=== PATIENT | male | born 1950 | race African-American/Black ===

== ENCOUNTER → 2016-08-25 | Day surgery (SDC) | payer MEDICARE ==
[~2016-08-25] MED LIST: ARIP10TA13 PO; DIPH25CA58 PO; FENTANYL PF 100 MCG/2 ML VIAL. IV PRN; GABA-586 PO; GLIP10TA13 PO; HYDROMORPHONE 2 MG/ML VIAL. IV PRN; INSU100C4 SQ; INSU100V8 SQ; IV RINGERS,LACTATED 1000ML 1,000 ML IV SCH; LIDOCAINE 1% 1 ML SYRINGE. ID PRN; LISI40TA PO; METF500T4 PO; MORPHINE SULFATE 2 MG/ML DISP.SYRIN. IV PRN; ONDANSETRON PF 4 MG/2 ML VIAL. IV PRN; PRED50TA PO; PROCHLORPERAZINE 10 MG/2 ML VIAL. IV PRN; PROPOFOL 40 ML IV ONE; TRAZ50TA15 PO
--- NOTE | 2016-08-25 10:22 | PDOC1 ---
HISTORY & PHYSICAL H&P Kiko Dawson [id number] 1950 08/08/2016 10:30 AM 06/29 [facility] OUR PATIENTS COME FIRST [address] [place], [place] [id number] Ph. [phone] Patient: Kiko Dawson Date of : 1950 Date: 08/08/2016 10:30 AM Historian: self Visit Type: Consult This 66 year old male presents for Screening colonoscopy and Constipation. History of Present Illness: 1. Screening colonoscopy No prior screening. Denies risk factors. Associated symptoms include constipation. Pertinent negatives include abdominal pain, change in bowel habits, change in stool caliber, decreased appetite, diarrhea, melena, nausea, rectal bleeding, vomiting, weight gain and weight loss. Additional information : No family history of colon cancer, No family history of Crohn's/colitis, No NSAID/ASA use and Never had colonoscopy. 2. Constipation Severity level mild. The patient describes it as difficulty passing, hard and small stools. Denies aggravating symptoms. Denies relieving factors. Pertinent negatives include abdominal pain, black tarry stools, bleeding with bowel movement, bloating, change in appetite, nausea, vomiting and weight loss. INTAKE COMMENTS: Intake Comments: Nurses Notes: Pt is here today for a Screening Colonoscopy. Pt denies any issues at this time Pt is 66 yrs of age has never had a colonoscopy before. PROBLEM LIST: Problem Description Onset Date Hyperlipidemia 12/30/2011 Benign essential hypertension 12/30/2011 Obesity 03/08/2009 PAST MEDICAL/SURGICAL HISTORY (Detailed) Disease/disorder Onset Date Management Date Comments Arthrocentesis of the right knee joint Arthrocentesis of the left knee joint Arthrocentesis of the right knee joint Arthrocentesis of the left knee joint Arthrocentesis of the right knee joint Arthrocentesis of the left knee joint Arthrocentesis of the right knee joint Arthrocentesis of the left knee joint Arthrocentesis of the left knee joint Arthrocentesis of the left knee joint Arthrocentesis of the left knee joint Arthrocentesis of the right knee joint Arthrocentesis of the right knee joint Arthrocentesis of the left knee joint Bipolar Diabetes GERD Hyperlipidemia Hypertension Medications (Active): Started Medication Directions Instruction Stopped 07/01/2016 Diflucan 100 mg tablet take 1 tablet by oral route every day 07/01/2016 doxycycline monohydrate 100 mg capsule take 1 capsule by oral route 2 times every day 07/01/2016 gabapentin 300 mg capsule take 1 capsule by oral route 3 times every day 07/30/2016 Humalog Mix 75-25 KwikPen 100 unit/mL subcutaneous insulin pen 35 u bid 11/19/2011 Insulin Syringe Ultrafine 1/2 mL 29 x 1/2" USE WITH INSULIN QID AND NEEDED 07/30/2016 Levemir FlexTouch 100 unit/mL (3 mL) subcutaneous insulin pen inject 50 units SQ daily with dinner 07/02/2016 losartan 50 mg tablet take 1 tablet by oral route every day 07/02/2016 lovastatin 20 mg tablet take 2 tablets by mouth every night at bedtime 07/02/2016 loxapine succinate 5 mg capsule take 1 capsule by oral route 2 times every day 07/02/2016 meclizine 25 mg tablet take 1 tablet by oral route every day as needed 07/02/2016 metformin 500 mg tablet take 2 tablet by oral route 2 times every day with morning and evening meals 07/02/2016 nystatin 100,000 unit/gram topical cream apply by topical route 2 times every day to the affected area(s) 07/02/2016 omeprazole 40 mg capsule,delayed release take 1 capsule by oral route every day before a meal 07/02/2016 propranolol 10 mg tablet take 1 tablet by oral route 2 times every day 07/02/2016 trazodone 150 mg tablet take 1 to 1.5 tablets at HS PRN for insomnia Allergies: Ingredient Reaction Medication Name Comment CODEINE LISINOPRIL Angioedema PRINIVIL HALOPERIDOL Haldol HALOPERIDOL LACTATE Haldol REVIEW OF SYSTEMS System Neg/Pos Details Constitutional Negative Chills, fever, malaise, weight gain and weight loss. ENMT Negative Sore throat. Eyes Negative Double vision. Respiratory Negative Dyspnea and wheezing. Cardio Negative Chest pain and irregular heartbeat/palpitations. GI Positive Constipation, See HPI. GI Negative Abdominal pain, black tarry stools, bleeding with bowel movement, bloating, change in appetite, change in bowel habits, change in stool caliber, decreased appetite, diarrhea, melena, nausea, see HPI, rectal bleeding and vomiting. Negative Dysuria and hematuria. Endocrine Negative Cold intolerance and heat intolerance. Psych Negative Anxiety. Integumentary Negative Hives and rash. MS Negative Joint pain. Chad/Lymph Negative Easy bleeding and easy bruising. Allergic/Immuno Negative Food allergies. VITAL SIGNS Time BP mm/Hg Pulse /min Resp /min Temp F Ht ft Ht in Ht cm Wt lb Wt kg BMI kg/ m2 BSA m2 O2 Sat% 10:40 AM 130/78 124 16 98.0 5.0 7.00 170.18 250.40 113.580 39.22 95 Time Measured by 10:40 AM Kourtney Madsen PHYSICAL EXAM: Exam Findings Details Constitutional Normal Well developed. Eyes Normal Conjunctiva - Right: Normal, Left: Normal. Sclera - Right: Normal, Left: Normal. Nasopharynx Normal Lips/teeth/gums - Normal. Neck Exam Normal Inspection - Normal. Thyroid gland - Normal. Respiratory Normal Inspection - Normal. Auscultation - Normal. Cardiovascular Normal Regular rate and rhythm. No murmurs, gallops, or rubs. Vascular Normal Pulses - Carotids: Normal, Femoral: Normal, Dorsalis pedis: Normal. Abdomen Normal Inspection - Normal. Anterior palpation - No guarding. No abdominal tenderness. No hepatic enlargement. No splenic enlargement. No hernia. No ascites. Skin Normal Inspection - Normal. Extremity Normal No edema. Psychiatric * Oriented to time, place, person and situation. Psychiatric Normal Appropriate mood and effect. Assessment/Plan # Detail Type Description 1. Assessment Slow transit constipation (K59.01). Patient Plan Await colonoscopy Provider Plan High fiber diet, fiber supplement and stool softener if needed. Avoid constipation and straining at defecation. 2. Assessment Encounter for screening colonoscopy (Z12.11). Patient Plan schedule colonoscopy at Plan Orders Further diagnostic evaluations ordered today include(s) Colonoscopy to be performed today. He is to schedule a follow-up visit with Guido Ibanez MD upon completion of work-up Electronically signed by: Guido Ibanez MD 08/08/2016 12:08 PM Document generated by: Guido Ibanez 08/08/2016 12:08 PM Kumar Marquez MD, Family Practice; Jt Chahal MD Internal Medicine; Lenka Ragsdale MD, Internal Medicine; Isabella Ibanez MD Internal Medicine; Guido Ibanez MD, Gastroenterology; Srinivasa Maya MD, Rheumatology, S. Bandar Tolentino, Physical Medicine/[facility] CenterFelipe DURBIN ------ 08/25/16 Patient seen and examined. No change in H&P GUIDO IBANEZ MD Aug 25, 2016 10:22
--- NOTE | 2016-08-25 11:25 | PDOC4 ---
GI OP Report - Dr. Enriquez Date/Time DATE: 08/25/16 TIME: 11:24 Attending Physician Guido Enriquez MD Referring Physician Indications Screening for colorectal malignant neoplasm Pre-Op See the Anesthesia note for documentation of the administered medications Procedures Colonoscopy Findings - The entire examined colon is normal on direct and retroflexion views. - No specimens collected. Plan - Discharge patient to home. - Patient has a contact number available for emergencies. The signs and symptoms of potential delayed complications were discussed with the patient. Return to normal activities tomorrow. Written discharge instructions were provided to the patient. - Resume regular diet. - Continue present medications. - Repeat colonoscopy in 10 years for surveillance. - Return to my office as needed. GUIDO ENRIQUEZ MD Aug 25, 2016 11:25
[2016-08-25 11:39] VITALS: BP 133/82
== END | disposition home or self-care (01) ==
LOC: ENDOS 09:40
PROVIDERS: ATTEND Internal Medicine Gastroenterology
DX: K59.00 Constipation, unspecified (principal); E78.00 Pure hypercholesterolemia, unspecified; H40.9 Unspecified glaucoma; I10 Essential (primary) hypertension; M19.90 Unspecified osteoarthritis, unspecified site; F41.9 Anxiety disorder, unspecified; Z72.89 Other problems related to lifestyle
CPT/HCPCS: 82947; G0121; J2704

== ENCOUNTER → 2018-01-28 | Outpatient (CLI) | payer BC, MEDICARE | END | disposition home or self-care (01) | LOC: US 08:17 | DX: K80.20 Calculus of gallbladder without cholecystitis without obstruction (principal); I10 Essential (primary) hypertension; E11.9 Type 2 diabetes mellitus without complications; E78.5 Hyperlipidemia, unspecified | CPT/HCPCS: 76700 ==

== ENCOUNTER 2019-07-06 14:55 | Emergency (ER) | payer BC, OTHER ==
[~2019-07-06 14:55] MED LIST changes: -ARIP10TA13 PO; +ARIP10TA9 PO; -FENTANYL PF 100 MCG/2 ML VIAL. IV PRN; -GABA-586 PO; +GABA300C18 PO; -HYDROMORPHONE 2 MG/ML VIAL. IV PRN; -IV RINGERS,LACTATED 1000ML 1,000 ML IV SCH; -LIDOCAINE 1% 1 ML SYRINGE. ID PRN; +LISI-130 PO; -LISI40TA PO; +METF500T16 PO; -METF500T4 PO; -MORPHINE SULFATE 2 MG/ML DISP.SYRIN. IV PRN; -ONDANSETRON PF 4 MG/2 ML VIAL. IV PRN; -PROCHLORPERAZINE 10 MG/2 ML VIAL. IV PRN; -PROPOFOL 40 ML IV ONE; +TRAZ-118 PO; -TRAZ50TA15 PO
--- NOTE | 2019-07-06 16:11 | PHYS DOC ---
Past Medical History Past Medical History: Depression, Diabetes-Type II, High Cholesterol, Hypertension, Other Additional Past Medical Histor: NEUROPATHY (KAYLEY BORGES APRN) Past Surgical History: Other Additional Past Surgical Histo: right hand (KAYLEY BORGES APRN) Alcohol Use: Occasionally Drug Use: None (KAYLEY BORGES APRN) Adult General Chief Complaint Chief Complaint: DIARRHEA HPI HPI Patient is a 68 year old male with history of diabetes type 2, hypertension, high cholesterol, who presents to the ED today complaining of diarrhea intermittently for a week. Patient reports symptoms have improved this morning but he had an episode this afternoon and decided to come to be checked out. Denies any bloody stools. Denies any abdominal pain, nausea vomiting. (KAYLEY BORGES APRN) Review of Systems Review of Systems Constitutional: Denies fever or chills [] Eyes: Denies change in visual acuity, redness, or eye pain [] HENT: Denies nasal congestion or sore throat [] Respiratory: Denies cough or shortness of breath [] Cardiovascular: No additional information not addressed in HPI [] GI: Reports diarrhea, denies any abdominal pain, nausea vomiting : Denies dysuria or hematuria [] Musculoskeletal: Denies back pain or joint pain [] Integument: Denies rash or skin lesions [] Neurologic: Denies headache, focal weakness or sensory changes [] All other systems were reviewed and found to be within normal limits, except as documented in this note. (KAYLEY BORGES APRN) Current Medications Current Medications Current Medications Medications (Trade) Dose Ordered Sig/Minda Start Time Stop Time Status Last Admin Dose Admin Ceftriaxone Sodium (Rocephin) 1 gm 1X ONCE 07/06/19 17:45 07/06/19 17:46 DC 07/06/19 18:13 1 GM Dicyclomine HCl (Bentyl) 20 mg 1X ONCE 07/06/19 16:15 07/06/19 16:16 DC 07/06/19 16:52 20 MG Famotidine (Pepcid Vial) 20 mg 1X ONCE 07/06/19 16:15 07/06/19 16:16 DC 07/06/19 16:52 20 MG Labetalol HCl (Normodyne Iv Push) 10 mg 1X ONCE 07/06/19 16:15 07/06/19 16:16 DC 07/06/19 17:10 10 MG Ondansetron HCl (Zofran) 4 mg 1X ONCE 07/06/19 16:15 07/06/19 16:16 DC 07/06/19 16:52 4 MG Sodium Chloride 1,000 ml @ 1,000 mls/hr 1X ONCE 07/06/19 16:15 07/06/19 17:14 DC 07/06/19 16:52 1,000 MLS/HR (ROSALIE TUTTLE DO) Allergies Allergies Allergies Coded Allergies Type Severity Reaction Last Updated Verified lisinopril Allergy Severe ANGIOEDEMA 08/25/16 Yes haloperidol Allergy Intermediate Unknown 08/25/16 Yes (ROSALIE TUTTLE DO) Physical Exam Physical Exam Constitutional: Well developed, well nourished, no acute distress, non-toxic appearance. [] HENT: Normocephalic, atraumatic, bilateral external ears normal, oropharynx moist, no oral exudates, nose normal. [] Eyes: PERRLA, EOMI, conjunctiva normal, no discharge. [] Neck: Normal range of motion, no tenderness, supple, no stridor. [] Cardiovascular:Heart rate regular rhythm, no murmur [] Lungs & Thorax: Bilateral breath sounds clear to auscultation [] Abdomen: Obese abdomen. Bowel sounds normal, soft, no tenderness, no masses, no pulsatile masses. [] Skin: Warm, dry, no erythema, no rash. [] Back: No tenderness, no CVA tenderness. [] Extremities: No tenderness, no cyanosis, no clubbing, ROM intact, no edema. [] Neurologic: Alert and oriented X 3, normal motor function, normal sensory function, no focal deficits noted. [] Psychologic: Affect normal, judgement normal, mood normal. [] (KAYLEY BORGES APRN) Current Patient Data Vital Signs Vital Signs Date Time Temp Pulse Resp B/P (MAP) Pulse Ox O2 Delivery O2 Flow Rate FiO2 07/06/19 18:23 88 18 157/81 (106) 97 Room Air 07/06/19 15:58 98.1 98.1 (ROSALIE TUTTLE DO) Lab Values Laboratory Tests Test 07/06/19 15:49 07/06/19 16:31 Urine Color Yellow Urine Clarity Clear Urine pH 5.5 Urine Specific [place] 1.010 Urine Protein Negative mg/dL (NEG-TRACE) Urine Glucose (UA) 250 mg/dL (NEG) Urine Ketones (Stick) Negative mg/dL (NEG) Urine Blood Negative (NEG) Urine Nitrite Negative (NEG) Urine Bilirubin Negative (NEG) Urine Urobilinogen Dipstick 0.2 mg/dL (0.2 mg/dL) Urine Leukocyte Esterase Moderate (NEG) Urine RBC 0 /HPF (0-2) Urine WBC 5-10 /HPF (0-4) Urine Squamous Epithelial Cells Occ /LPF Urine Bacteria Few /HPF (0-FEW) Urine Yeast Present /HPF White Blood Count 6.3 x10^3/uL (4.0-11.0) Red Blood Count 5.39 x10^6/uL (4.30-5.70) Hemoglobin 13.7 g/dL (13.0-17.5) Hematocrit 41.5 % (39.0-53.0) Mean Corpuscular Volume 77 fL (79-100) L Mean Corpuscular Hemoglobin 25 pg (25-35) Mean Corpuscular Hemoglobin Concent 33 g/dL (31-37) Red Cell Distribution Width 15.4 % (11.5-14.5) H Platelet Count 335 x10^3/uL (140-400) Neutrophils (%) (Auto) 48 % (31-73) Lymphocytes (%) (Auto) 41 % (24-48) Monocytes (%) (Auto) 7 % (0-9) Eosinophils (%) (Auto) 3 % (0-3) Basophils (%) (Auto) 1 % (0-3) Neutrophils # (Auto) 3.0 x10^3/uL (1.8-7.7) Lymphocytes # (Auto) 2.6 x10^3/uL (1.0-4.8) Monocytes # (Auto) 0.4 x10^3/uL (0.0-1.1) Eosinophils # (Auto) 0.2 x10^3/uL (0.0-0.7) Basophils # (Auto) 0.1 x10^3/uL (0.0-0.2) Prothrombin Time 12.3 SEC (11.7-14.0) Prothrombin Time INR 0.9 (0.8-1.1) Activated Partial Thromboplast Time 30 SEC (24-38) Sodium Level 141 mmol/L (136-145) Potassium Level 3.5 mmol/L (3.5-5.1) Chloride Level 103 mmol/L (98-107) Carbon Dioxide Level 28 mmol/L (21-32) Anion Gap 10 (6-14) Blood Urea Nitrogen 9 mg/dL (8-26) Creatinine 1.0 mg/dL (0.7-1.3) Estimated GFR (Cockcroft-Gault) 89.9 BUN/Creatinine Ratio 9 (6-20) Glucose Level 67 mg/dL (70-99) L Calcium Level 9.2 mg/dL (8.5-10.1) Magnesium Level 1.5 mg/dL (1.8-2.4) L Total Bilirubin 0.2 mg/dL (0.2-1.0) Aspartate Amino Transferase (AST) 11 U/L (15-37) L Alanine Aminotransferase (ALT) 10 U/L (16-63) L Alkaline Phosphatase 138 U/L (46-116) H Total Protein 7.9 g/dL (6.4-8.2) Albumin 3.3 g/dL (3.4-5.0) L Albumin/Globulin Ratio 0.7 (1.0-1.7) L Lipase 76 U/L (73-393) Ethyl Alcohol Level < 10 mg/dL (0-10) Laboratory Tests 07/06/19 16:31 Laboratory Tests 07/06/19 16:31 (ROSALIE TUTTLE DO) Lab Values Laboratory Tests Test 07/06/19 15:49 07/06/19 16:31 Urine Color Yellow Urine Clarity Clear Urine pH 5.5 Urine Specific [place] 1.010 Urine Protein Negative mg/dL (NEG-TRACE) Urine Glucose (UA) 250 mg/dL (NEG) Urine Ketones (Stick) Negative mg/dL (NEG) Urine Blood Negative (NEG) Urine Nitrite Negative (NEG) Urine Bilirubin Negative (NEG) Urine Urobilinogen Dipstick 0.2 mg/dL (0.2 mg/dL) Urine Leukocyte Esterase Moderate (NEG) Urine RBC 0 /HPF (0-2) Urine WBC 5-10 /HPF (0-4) Urine Squamous Epithelial Cells Occ /LPF Urine Bacteria Few /HPF (0-FEW) Urine Yeast Present /HPF White Blood Count 6.3 x10^3/uL (4.0-11.0) Red Blood Count 5.39 x10^6/uL (4.30-5.70) Hemoglobin 13.7 g/dL (13.0-17.5) Hematocrit 41.5 % (39.0-53.0) Mean Corpuscular Volume 77 fL (79-100) L Mean Corpuscular Hemoglobin 25 pg (25-35) Mean Corpuscular Hemoglobin Concent 33 g/dL (31-37) Red Cell Distribution Width 15.4 % (11.5-14.5) H Platelet Count 335 x10^3/uL (140-400) Neutrophils (%) (Auto) 48 % (31-73) Lymphocytes (%) (Auto) 41 % (24-48) Monocytes (%) (Auto) 7 % (0-9) Eosinophils (%) (Auto) 3 % (0-3) Basophils (%) (Auto) 1 % (0-3) Neutrophils # (Auto) 3.0 x10^3/uL (1.8-7.7) Lymphocytes # (Auto) 2.6 x10^3/uL (1.0-4.8) Monocytes # (Auto) 0.4 x10^3/uL (0.0-1.1) Eosinophils # (Auto) 0.2 x10^3/uL (0.0-0.7) Basophils # (Auto) 0.1 x10^3/uL (0.0-0.2) Prothrombin Time 12.3 SEC (11.7-14.0) Prothrombin Time INR 0.9 (0.8-1.1) Activated Partial Thromboplast Time 30 SEC (24-38) Sodium Level 141 mmol/L (136-145) Potassium Level 3.5 mmol/L (3.5-5.1) Chloride Level 103 mmol/L (98-107) Carbon Dioxide Level 28 mmol/L (21-32) Anion Gap 10 (6-14) Blood Urea Nitrogen 9 mg/dL (8-26) Creatinine 1.0 mg/dL (0.7-1.3) Estimated GFR (Cockcroft-Gault) 89.9 BUN/Creatinine Ratio 9 (6-20) Glucose Level 67 mg/dL (70-99) L Calcium Level 9.2 mg/dL (8.5-10.1) Magnesium Level 1.5 mg/dL (1.8-2.4) L Total Bilirubin 0.2 mg/dL (0.2-1.0) Aspartate Amino Transferase (AST) 11 U/L (15-37) L Alanine Aminotransferase (ALT) 10 U/L (16-63) L Alkaline Phosphatase 138 U/L (46-116) H Total Protein 7.9 g/dL (6.4-8.2) Albumin 3.3 g/dL (3.4-5.0) L Albumin/Globulin Ratio 0.7 (1.0-1.7) L Lipase 76 U/L (73-393) Ethyl Alcohol Level < 10 mg/dL (0-10) Laboratory Tests 07/06/19 16:31 Laboratory Tests 07/06/19 16:31 (KAYLEY BORGES APRN) EKG EKG [] (KAYLEY BORGES APRN) Radiology/Procedures Radiology/Procedures [] (KAYLEY BORGES APRN) Course & Med Decision Making Course & Med Decision Making Pertinent Labs and Imaging studies reviewed. (See chart for details) This is a 68-year-old male patient presenting to the ED today with diarrhea for one week was improving today. CBC with no acute findings. CMP with no acute findings. UA positive for UTI and yest. Given Rocephin in the Ed. Patient was discharged with cephalexin and fluconazole. He is feeling better in the ED currently tolerating soda and crackers. His blood pressure was noted to be high on arrival at 210/94 with a heart rate in the 130s. Temperature is okay. He was given 1 L of IV fluid, Zofran and dicyclomine. Was given labetalol for his blood pressure which came down to 172/77. He was provided instructions to follow-up with the PCP. Provided return precautions and discharged in stable condition. (KAYLEY BORGES APRN) Dragon Disclaimer Dragon Disclaimer This electronic medical record was generated, in whole or in part, using a voice recognition dictation system. (KAYLEY BORGES APRN) Departure Departure Impression: Primary Impression: Diarrhea Additional Impressions: Urinary tract infection Hypertension Yeast cystitis Disposition: 01 HOME, SELF-CARE Condition: STABLE Referrals: JOSSELIN AVELAR MD (PCP) follow up in the course of this week Patient Instructions: Diarrhea, [id number], Urinary Tract Infection Additional Instructions: You were evaluated in the emergency room and noted to have urinary tract infection and a little bit of yeast infection in your urine. We put you on medications, take them as prescribed. Take the prescribed Lomotil as needed for diarrhea. Please follow-up with your own doctor in the course of this week. Ensure you are taking your blood pressure medications. Scripts Fluconazole (DIFLUCAN) 150 Mg Tablet 1 TAB PO ONCE, #1 TAB 1 Refill Take 1 tablet today and repeat in 1 week Prov: KAYLEY BORGES APRN 07/06/19 Diphenoxylate Hcl/Atropine (LOMOTIL TABLET) 1 Each Tablet 1 TAB PO TID, #20 TAB Prov: KAYLEY BORGES APRN 07/06/19 Cephalexin (CEPHALEXIN) 500 Mg Tablet 1 TAB PO BID, #14 TAB Prov: KAYLEY BORGES APRN 07/06/19 Attending Signature Attending Signature I have reviewed the PA/FLOOR CASHIER's note and plan of care. I was available for consultation as needed during the patient's visit in the emergency department. I agree with the clinical impression, plan, and disposition. (ROSALIE TUTTLE DO) Problem Qualifiers Primary Impression: Diarrhea Diarrhea type: unspecified type Qualified Codes: R19.7 - Diarrhea, unspecified Additional Impressions: Urinary tract infection Urinary tract infection type: site unspecified Hematuria presence: without hematuria Qualified Codes: N39.0 - Urinary tract infection, site not specified Hypertension Hypertension type: unspecified Qualified Codes: I10 - Essential (primary) hypertension KAYLEY BORGES APRN Jul 06, 2019 16:11 ROSALIE TUTTLE DO Jul 06, 2019 19:15
[2019-07-06] MEDS ORDERED: LABETALOL 20 MG/4 ML DISP.SYRIN. IVP ONE (16:15)
[2019-07-06] MEDS ORDERED: ONDANSETRON PF 4 MG/2 ML VIAL. IV ONE (16:15)
[2019-07-06] MEDS ORDERED: DICYCLOMINE HCL 10 MG CAPSULE PO ONE (16:15)
[2019-07-06] MEDS ORDERED: FAMOTIDINE 20 MG/2 ML VIAL IVP ONE (16:15)
[2019-07-06] MEDS ORDERED: IV NORMAL SALINE 1000ML BAG 1,000 ML IV ONE (16:15)
[2019-07-06 16:43] LABS: BILIRUBIN,URINE NEGATIVE (NEG); CLARITY,URINE CLEAR; COLOR,URINE YELLOW; NITRITE,URINE NEGATIVE (NEG); PH,URINE 5.5; PROTEIN,URINE NEGATIVE (NEG-TRACE); UROBILINOGEN,URINE 0.2 mg/dL (0.2 mg/dL)
[2019-07-06 16:45] LABS: BASO # 0.1 x10^3/uL (0.0-0.2); BASO % 1 % (0-3); EOS # 0.2 x10^3/uL (0.0-0.7); EOS % 3 % (0-3); HEMATOCRIT 41.5 % (39.0-53.0); HEMOGLOBIN 13.7 g/dL (13.0-17.5); LYMPH # 2.6 x10^3/uL (1.0-4.8); LYMPH % 41 % (24-48); MEAN CORPUSCULAR HEMOGLOBIN 25 pg (25-35); MEAN CORPUSCULAR HGB CONC 33 g/dL (31-37); MEAN CORPUSCULAR VOLUME 77 fL (79-100); MONO # 0.4 x10^3/uL (0.0-1.1); MONO % 7 % (0-9); NEUT % 48 % (31-73); PLATELET COUNT 335 x10^3/uL (140-400); RED BLOOD COUNT 5.39 x10^6/uL (4.30-5.70); RED CELL DISTRIBUTION WIDTH 15.4 % (11.5-14.5); WHITE BLOOD COUNT 6.3 x10^3/uL (4.0-11.0)
[2019-07-06 16:48] LABS: PROTHROMBIN TIME PATIENT 12.3 SEC (11.7-14.0)
[2019-07-06 16:50] LABS: CALCIUM 9.2 mg/dL (8.5-10.1); GFR 89.9; POTASSIUM 3.5 mmol/L (3.5-5.1)
[2019-07-06 16:55] LABS: BACTERIA,URINE FEW /HPF (0-FEW); RBC,URINE 0 /HPF (0-2); SQUAMOUS EPITHELIAL CELL,UR OCC /LPF; YEAST,URINE PRESENT /HPF
[2019-07-06 16:58] LABS: ALBUMIN 3.3 g/dL (3.4-5.0); ALBUMIN/GLOBULIN RATIO 0.7 (1.0-1.7); MAGNESIUM 1.5 mg/dL (1.8-2.4); TOTAL BILIRUBIN 0.2 mg/dL (0.2-1.0); TOTAL PROTEIN 7.9 g/dL (6.4-8.2)
[2019-07-06] MEDS ORDERED: cefTRIAXone IV Push 1 GM VIAL. IVP ONE (17:45)
[2019-07-06] MEDS ORDERED: DIPH1TAB PO (18:12)
[2019-07-06] MEDS ORDERED: CEPH500T PO (18:12)
[2019-07-06] MEDS ORDERED: FLUC150T PO (18:12)
[2019-07-06 18:23] VITALS: BP 157/81
== END 2019-07-06 18:38 | disposition home or self-care (01) ==
LOC: ER 14:55
DX: R19.7 Diarrhea, unspecified (principal); N39.0 Urinary tract infection, site not specified; I10 Essential (primary) hypertension; N30.90 Cystitis, unspecified without hematuria; B96.89 Other specified bacterial agents as the cause of diseases classified elsewhere; F32.9 Major depressive disorder, single episode, unspecified; E78.00 Pure hypercholesterolemia, unspecified; E11.21 Type 2 diabetes mellitus with diabetic nephropathy; Z88.8 Allergy status to other drugs, medicaments and biological substances; Z98.890 Other specified postprocedural states
CPT/HCPCS: 36415; 80053; 81001; 83690; 83735; 85025; 85610; 85730; 96361; 96374; 96375; 99284; G0480; J0696; J2405; J3490; J7030